=== PATIENT | female | born 1970 | race Caucasian/White ===

== ENCOUNTER 2016-06-23 20:48 | Emergency (ER) | payer OTHER, MEDICARE ==
[~2016-06-23] VITALS: Ht 160 cm; Wt 65.8 kg
[~2016-06-23 20:48] MED LIST: ALBUTEROL0.09 MG/A1 INH; ALPRAZOLAM0.5 M4 PO; ALPRAZOLAM0.5 MG PO; ANTIVERT 25MG #1 PAC PO; ATROVENT HFA 121 PUF INH; BENZTROPINE MESY1 MG PO; BENZTROPINE1 MG PO; DIVALPROEX SOD500 M3 PO; DIVALPROEX SOD500 MG PO; FIORICET 300 MG1 CAP PO; FIORICET 325 MG1 TAB PO; HALDOL 5MG TABLE5 MG PO; HALOPERIDOL5 MG PO; IBUPROFEN600 M1 PO; INVEGA PO; NORCO 5-325 TA1 EACH PO; PERCOCET 5-3251 EACH PO; PREDNISONE 20MG20 MG PO; PROAIR HFA0.09 MG/Ac PO; TYLENOL WITH C1 EACH PO; VIBRAMYCIN 100100 MG PO; ZITHROMAX Z-PA250 M1 PO; ZOFRAN ODT4 M1 SL; ZOFRAN ODT4 MG PO; ZOFRAN ODT4 MG SL
[2016-06-23 20:50] VITALS: BP 121/77
--- NOTE | 2016-06-23 21:17 | ED NECK/BACK PAIN COMPLAINT ---
History of Present Illness General Chief Complaint: Low Back Pain/Injury Stated Complaint: CHRONIC BACK PAIN Source: patient, old records Exam Limitations: no limitations Vital Signs & Intake/Output Vital Signs & Intake/Output Vital Signs Date Time Temp Pulse Resp B/P Pulse O2 O2 Flow FiO2 Ox Delivery Rate 06/23 2049 98.1 85 18 121/77 97 Room Air Allergies Coded Allergies: Penicillins (RASH, DYSPNEA, CHEST PAIN 11/29/15) Sulfa (Sulfonamide Antibiotics) (RASH, DYSPNEA, CHEST PAIN 11/29/15) amoxicillin (RASH, DYSPNEA, CHEST PAINS 11/29/15) cefaclor (RASH, DYSPNEA, CHEST PAIN 11/29/15) erythromycin base (RASH, DYSPNEA, CHEST PAINS 11/29/15) Uncoded Allergies: NOTRIN (GI UPSET 06/23/16) Reconcile Medications Alprazolam 0.5 MG TABLET 1 TAB PO TID PRN ANXIETY (Reported) Cyclobenzaprine HCl 5 MG TABLET 1 TAB PO TIDPRN PRN pain Divalproex Sodium (Divalproex Sodium ER) 500 MG TAB.ER.24H 1 TAB PO QAM MENTAL HEALTH (Reported) Divalproex Sodium (Divalproex Sodium ER) 500 MG TAB.ER.24H 2 TAB PO QPM MENTAL HEALTH (Reported) Haloperidol 5 MG TABLET 1 TAB PO BID MENTAL HEALTH (Reported) Hydrocodone/Acetaminophen ([place] 5-325 Tablet) 5 MG-325 MG TABLET 1-2 TAB PO Q4-6 PRN PRN pain Hydrocodone/Acetaminophen ([place] 5-325 Tablet) 5 MG-325 MG TABLET 1-2 TAB PO Q4-6 PRN PRN pain Ibuprofen 600 MG TABLET 1 TAB PO Q6PRN PRN pain with food Ondansetron (Zofran Odt) 4 MG TAB.RAPDIS 1 TAB SL TID PRN nausea Oxycodone HCl/Acetaminophen (Percocet 5-325 MG Tablet) 1 EACH TABLET 1-2 TAB PO Q6-PRN PRN pain Tylenol With Codeine (Tylenol With Codeine #3 Tablet) 1 EACH TABLET 1-2 TAB PO Q6 PRN pain may cause drowsiness Triage Note: PT TO ED C/O EXACERBATION OF CHRONIC BACK PAIN. NO RECENT INJURY. TYLENOL NOT HELPING. Triage Nurses Notes Reviewed? yes Onset: Abrupt Duration: day(s): (4), constant, waxing and waning Timing: recent history Quality/Severity: moderate, severe Location: paraspinous muscles Radiation: buttocks, lower legs Method of Injury: unknown Loss of Consciousness: no loss of consciousness Modifying Factors: movement, pain medication Associated Symptoms: DENIES : No Patient currently breastfeeds: No HPI: 45-year-old female with history of chronic back pain presents emergency room complaining of exacerbation of her lower back pain for the past 4 days. The patient states the symptoms began back in February of this previous year after raking leaves and is followed by orthopedist Dr. WHITT whom she is scheduled to see again in 6 days. She has been taking [id number] Tylenol without improvement. She states the pain intermittently radiates down her legs and is worse with change in position better at rest no abdominal pain urinary symptoms urinary or bowel incontinence fever or chills Past History Travel History Traveled to [place] past 21 day No Medical History Any Pertinent Medical History? 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 No Review of Systems Review of Systems Constitutional: Reports: see HPI. All Other Systems: Reviewed and Negative Comments Review of systems: See HPI, All other systems negative. Constitutional, no chills no fever, no malaise HEENT: No visual changes no sore throat no congestion Cardiovascular: No chest pain , no palpitation Skin, no jaundice no rashes, no change in skin Respiratory: No dyspnea no cough no sputum GI: No nausea no vomiting, no diarrhea, : No dysuria No hematuria, no frequency, no discharge Muscle skeletal: No joint pain, no joint swelling, back pain, no neck pain, Neurologic: No numbness no headache Psych: No stress. Heme/endocrine: No bruising no bleeding Immunology: No lymphadenopathy Physical Exam Physical Exam General Appearance: well developed/nourished, no apparent distress, alert, awake Neck: normal inspection, supple, full range of motion Comments: Well-developed well-nourished person in no acute distress HEENT: Normal EENT exam; PERRL, EOMI,. HEAD is atraumatic. moist mucous membranes. Neck: Supple, normal range of motion Back: No midline tenderness bilateral paralumbar tenderness, no CVA tenderness. Full range of motion Cardiovascular: Regular rate and rhythms no murmurs rubs Respiratory: Chest nontender.To respiratory distress. Patient speaking in full complete sentences. Breath sounds clear to auscultation bilaterally: NO W/R/R Abdomen: Soft, nontender nondistended, no appreciable organomegaly Extremity: Positive straight leg raise to bilateral lower extremity No edema, full range of motion of extremities, 5 out of 5 strength noted to bilateral upper and lower extremities Neuro: Alert oriented x3, motor sensory normal, There were no obvious focal neurologic abnormalities. Skin: No appreciable rash on exposed skin, skin is warm and dry. Psych: Mood and affect is normal, memory and judgment is normal. Progress Differential Diagnosis: cauda equina syn, herniated disc, myofascial strain, pyelo/UTI, sciatica, spinal cord inj, T/L spine injury, ureterolithiasis Plan of Care: Patient has been seen numerous times in the past for similar symptoms. Patient reports that the Bedminster she received in the past has helped for her pain in addition to a muscle relaxer. Patient clinically looks well. Patient has no evidence of radiculopathy. No urinary bowel dysfunction. No numbness in the genital area. Strength intact. Gross sensation intact. Patient resting comfortably and in no apparent distress. Pain is worse with range of motion. Pain is reproducible IN back with no bruising or ecchymosis noted. . Patient is to follow-up with primary care doctor. May need MRI of the lower back at some point time. No concerns for cauda equina at this point time. I considered this diagnosis but patient does not have any symptoms consistent with cauda equina. Patient has no secondary causes of back pain. No cardiac, pulmonary, or abdominal complaints. No abdominal pain on exam. Cardiac pulmonary exam within normal limits. No rashes, afebrile, denies recent weight loss, dizziness, lightheadedness Departure Departure Time of Disposition: 2121 Disposition: HOME OR SELF CARE Condition: Stable Clinical Impression Primary Impression: Low back strain Referrals: MARIE HSU,ILA Hill (PCP/Family) Additional Instructions: follow up with your primary care physician as well as your orthopedist dr WHITT. Seth and [place] as directed. Use caution as these are narcotics and make you drowsy no driving or drinking alcohol while taking Departure Forms: Customer Survey General Discharge Information Prescriptions: Current Visit Scripts Hydrocodone/Acetaminophen ([place] 5-325 Tablet) 1-2 TAB PO Q4-6 PRN PRN pain #10 TAB Cyclobenzaprine HCl 1 TAB PO TIDPRN PRN pain #12 TAB
[2016-06-23] MEDS ORDERED: NORCO 5-325 TA1 EACH PO (21:23)
[2016-06-23] MEDS ORDERED: CYCLOBENZAPRINE5 M2 PO (21:23)
== END 2016-06-23 21:29 ==
LOC: ERH 20:48
DX: S39.012A Strain of muscle, fascia and tendon of lower back, initial encounter (principal); X58.XXXA Exposure to other specified factors, initial encounter

== ENCOUNTER 2016-09-28 21:56 | Emergency (ER) | payer OTHER, MEDICARE ==
[~2016-09-28 21:56] MED LIST changes: +CYCLOBENZAPRINE5 M2 PO
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
[2016-09-28] MEDS ORDERED: QUETIAPINE FUMA50 M1 PO (22:11)
[2016-09-28] MEDS ORDERED: HYDROCODON-ACE1 EAC3 PO (22:11)
[2016-09-28] MEDS ORDERED: QUETIAPINE FUMA25 M1 PO (22:11)
[2016-09-28] MEDS ORDERED: ARIPIPRAZOLE5 M1 (22:12)
[2016-09-28] MEDS ORDERED: MEDROXYPRO150 MG/11 IM (22:12)
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
[2016-09-29] MEDS ORDERED: CYCLOBENZAPRINE10 M1 PO (01:05)
[2016-09-29 01:09] VITALS: BP 140/80
== END 2016-09-29 01:10 ==
LOC: ERH 21:56
DX: M54.9 Dorsalgia, unspecified (principal); M54.2 Cervicalgia; R51 Headache; V43.52XA Car driver injured in collision with other type car in traffic accident, initial encounter; Y93.9 Activity, unspecified; Y92.488 Other paved roadways as the place of occurrence of the external cause
CPT/HCPCS: 81025